=== PATIENT | female | born 1955 | race Caucasian/White ===

== ENCOUNTER 2022-09-24 10:47 | Outpatient (CLI) | payer MEDICARE, OTHER ==
[2022-09-24 12:31] LABS: Hemoglobin 13.5 g/dL (12.0-15.5); Mean Corpuscular HGB CONC 31.6 g/dL (32.0-36.0); Mean Corpuscular Hemoglobin 28.5 pg (27.0-33.0); Mean Corpuscular Volume 90.1 fl (81.6-98.3); Mean Platelet Volume 11.9 fl (7.4-10.4); Platelet Count 325 10x3/uL (150-450); RBC Distribution Width 14.5 % (11.5-14.5); Red Blood Cell (RBC) Count 4.74 10x6/uL (3.90-5.03); White Blood Cell (WBC) Count 7.1 10x3/uL (3.5-10.5)
[2022-09-24 12:47] LABS: Anion Gap 16 mmol/L (10-20); BUN (Urea Nitrogen) 14 mg/dL (9.8-20.1); Calc. Creatinine Clearance 0 mL/min (70-130); Calcium 9.5 mg/dL (7.8-10.44); Carbon Dioxide 26 mmol/L (23-31); Chloride 102 mmol/L (98-107); Estimated GFR 70; Glucose 246 mg/dL (80-115); Potassium 4.6 mmol/L (3.5-5.1); Sodium 139 mmol/L (136-145)
== END 2022-09-24 10:48 | disposition home or self-care (01) ==
LOC: CSHLAB 10:47
PROVIDERS: ATTEND Otolaryngology Otolaryngic Allergy
DX: Z01.818 Encounter for other preprocedural examination (principal)
CPT/HCPCS: 80048; 85027; 93005; 93010

== ENCOUNTER 2022-09-29 07:33 | Day surgery (SDC) | payer OTHER ==
[2022-09-24 12:54] VITALS: BMI 30.9
[2022-09-29] MEDS ORDERED: PROPOFOL 20 ML ONE (10:23)
[2022-09-29] MEDS ORDERED: Fentanyl 250 MCG/5 ML VIAL ONE (10:23)
[2022-09-29] MEDS ORDERED: fentaNYL 50 mcg/mL 1 mL Vial ONE (10:24)
[2022-09-29] MEDS ORDERED: Dexamethasone 20 MG/5 ML VIAL ONE (10:24)
[2022-09-29] MEDS ORDERED: Ondansetron PF 4 MG/2 ML Vial ONE (10:24)
[2022-09-29] MEDS ORDERED: Lidocaine 1% w/Epinephrine 1:100K 20 ML VIAL ONE (11:17)
== END 2022-09-29 12:50 | disposition home or self-care (01) ==
LOC: CSHSDC 07:33
PROVIDERS: ATTEND Otolaryngology Otolaryngic Allergy
PROC: 0HB1XZZ Excision of Face Skin, External Approach (ICD-10-PCS; principal; 2022-09-29)
PROC: 4A1ZXQZ Monitoring of Sleep, External Approach (ICD-10-PCS; 2022-09-29)
DX: C44.319 Basal cell carcinoma of skin of other parts of face (principal); G47.33 Obstructive sleep apnea (adult) (pediatric); D48.5 Neoplasm of uncertain behavior of skin; G43.909 Migraine, unspecified, not intractable, without status migrainosus; J30.9 Allergic rhinitis, unspecified; D64.9 Anemia, unspecified; E78.00 Pure hypercholesterolemia, unspecified; E11.36 Type 2 diabetes mellitus with diabetic cataract; E66.9 Obesity, unspecified; Z68.32 Body mass index [BMI] 32.0-32.9, adult; Z88.0 Allergy status to penicillin; Z88.2 Allergy status to sulfonamides; Z79.899 Other long term (current) drug therapy
CPT/HCPCS: 11642; 13132; 42975; J3010; 88305; 88331; 88332; J1100; J2405; J2704

== ENCOUNTER 2023-01-12 06:03 | Day surgery (SDC) | payer OTHER ==
[2023-01-07 11:42] VITALS: BMI 32.7
[2023-01-12] MEDS ORDERED: Midazolam HCl 2 mg/2 ml Vial ONE (06:43)
[2023-01-12] MEDS ORDERED: PROPOFOL 20 ML ONE (06:43)
[2023-01-12] MEDS ORDERED: Fentanyl 250 MCG/5 ML VIAL ONE (06:43)
[2023-01-12] MEDS ORDERED: Ondansetron PF 4 MG/2 ML Vial ONE (06:43)
[2023-01-12] MEDS ORDERED: Lidocaine 1% PF 5 ML VIAL ONE (06:43)
[2023-01-12] MEDS ORDERED: Dexamethasone 20 MG/5 ML VIAL ONE (06:43)
[2023-01-12] MEDS ORDERED: Rocuronium Bromide 10 MG/ML (10ML VIAL) ONE (06:43)
[2023-01-12] MEDS ORDERED: Clindamycin/D5W 600 mg/50 ml Premix Bag ONE (07:12)
[2023-01-12] MEDS ORDERED: Glycopyrrolate 0.2 MG/ML 5 ML SYRINGE ONE (07:43)
[2023-01-12] MEDS ORDERED: Lidocaine 1% w/Epinephrine 1:100K 20 ML VIAL ONE (08:20)
[2023-01-12] MEDS ORDERED: Vancomycin 1 GM VIAL ONE (08:35)
[2023-01-12] MEDS ORDERED: HYDROcodone/Acetaminophen 5/325 mg Tablet ONE (10:08)
== END 2023-01-12 11:00 | disposition home or self-care (01) ==
LOC: CSHSDC 06:03
PROVIDERS: ATTEND Otolaryngology Otolaryngic Allergy
PROC: 0JH60MZ Insertion of Stimulator Generator into Chest Subcutaneous Tissue and Fascia, Open Approach (ICD-10-PCS; principal; 2023-01-12)
PROC: 00HE0MZ Insertion of Neurostimulator Lead into Cranial Nerve, Open Approach (ICD-10-PCS; 2023-01-12)
DX: G47.33 Obstructive sleep apnea (adult) (pediatric) (principal); D48.5 Neoplasm of uncertain behavior of skin; I10 Essential (primary) hypertension; I25.10 Atherosclerotic heart disease of native coronary artery without angina pectoris; E78.5 Hyperlipidemia, unspecified; Z79.82 Long term (current) use of aspirin; Z79.899 Other long term (current) drug therapy; Z86.73 Personal history of transient ischemic attack (TIA), and cerebral infarction without residual deficits; Z88.0 Allergy status to penicillin; Z88.2 Allergy status to sulfonamides
CPT/HCPCS: C1787; C1820; C1898; J1100; J2250; J2405; J2704; J3010; J3370; J3490